=== PATIENT | female | born 1950 | race Caucasian/White ===

== ENCOUNTER 2017-12-26 18:47 | Emergency (ER) | payer OTHER ==
--- NOTE | 2017-12-26 19:19 | PDOC ---
Rapid Medical Evaluation Time Seen by Provider: 12/26/17 19:15 Medical Evaluation: Allergies Allergy/AdvReac Type Severity Reaction Status Date / Time aspirin Allergy Severe Hives Verified 10/13/16 16:37 12/26/17 19:15 The patient presents with a chief complaint of: [Intermittent dizziness, upper back pain. Since yesterday. H/O HTN. No headache, No CP, SOB, No N/V/D. NO complaint upon arrival. ] I have performed a brief in-person evaluation of this patient. Pertinent physical exam findings: vss, [Neuro intact, HRR, Lungs clear. ] I have ordered the following: [None] The patient will proceed to the ED for further evaluation. Discharge Disposition - Diagnosis Dizziness - Referrals - Patient Instructions - Post Discharge Activity
[2017-12-26 19:34] VITALS: BP 140/74; PULSE 65; TEMP 98.2; BMI 25.0
--- NOTE | 2017-12-26 21:03 | PDOC ---
History of Present Illness - General Chief Complaint: Lightheaded Stated Complaint: FATIGUE Time Seen by Provider: 12/26/17 19:15 History Source: Patient Exam Limitations: No Limitations - History of Present Illness Initial Comments: 12/26/17 20:58 67-year-old female described dizziness. Pt denies cp or headache or sob. Pt states she is compliant with her medication. Denies fever or chills, denies n or v. Pt denies recent travel. Past History - Travel Traveled outside of the country in the last 30 days: No Close contact w/someone who was outside of country & ill: No - Past Medical History Allergies/Adverse Reactions: Allergies Allergy/AdvReac Type Severity Reaction Status Date / Time aspirin Allergy Severe Hives Verified 12/26/17 19:19 Home Medications: Ambulatory Orders Metoprolol Succinate [Toprol XL -] 12.5 mg PO DAILY 02/10/16 Omeprazole 20 mg PO DAILY 02/10/16 Meclizine HCl 25 mg PO TID #30 tablet 12/26/17 Cardiac Disorders: Yes (PA 1977, prolaps) COPD: No GI Disorders: Yes (GERD) HTN: Yes Hypercholesterolemia: Yes - Surgical History Abdominal Surgery: Yes Appendectomy: Yes Cholecystectomy: Yes - Immunization History Immunization Up to Date: Yes - Suicide/Smoking/Psychosocial Hx Smoking Status: No Smoking History: Never smoked Have you smoked in the past 12 months: No Number of Cigarettes Smoked Daily: 0 Information on smoking cessation initiated: No Hx Alcohol Use: No Drug/Substance Use Hx: No Substance Use Type: None Review of Systems - Review of Systems Able to Perform ROS?: Yes Is the patient limited Frisian proficient: No Constitutional: Yes: Symptoms Reported, See HPI. No: Diaphoresis, Fever, Loss of Appetite, Malaise, Night Sweats, Weight Stable, Unintentional Wgt. Loss, Unexplained wgt Loss, Other HEENTM: Yes: Symptoms Reported, See HPI. No: Eye Pain, Blurred Vision, Tearing , Recent change in vision, Double Vision, Cataracts, Ear Pain, Ocular Prothesis , Ear Discharge, Nose Pain, Nose Congestion, Tinnitus Respiratory: Yes: Symptoms reported, See HPI. No: Cough, Orthopnea, Shortness of Breath, SOB with Exertion, SOB at Rest, Stridor, Wheezing, Productive cough Cardiac (ROS): Yes: Symptoms Reported, See HPI, Lightheadedness. No: Chest Pain , Edema, Irregular Heart Rate, Chest Tightness, Other ABD/GI: Yes: Symptoms Reported, See HPI. No: Abdominal Distended, Abd. Pain w/ defecation, Blood Streaked Bowels, Constipated, Diarrhea : Yes: Symptoms Reported, See HPI. No: Burning, Dysuria, Discharge, Frequency , Flank Pain, Hematuria, Pain Musculoskeletal: Yes: Symptoms Reported, See HPI. No: Back Pain, Gout, Joint Pain, Joint Swelling, Muscle Pain, Neck Pain Integumentary: Yes: Symptoms Reported, See HPI. No: Bruising, Change in Color, Change in Hair/Nails, Dryness, Erythema, Flushing, Lesions Neurological: Yes: Symptoms reported, See HPI, Dizziness. No: Headache, Numbness, Paresthesia, Pre-Existing Deficit, Seizure, Tingling, Weakness Psychiatric: No: Anxiety, Depression, Frequent Crying, Stressors, Sleep Pattern Change Endocrine: Yes: Symptoms Reported, See HPI. No: Excessive Sweating, Flushing, Intolerance to Cold, Intolerance to Heat, Increased Hunger, Unexplained Weight Gain Hematologic/Lymphatic: Yes: Symptoms Reported, See HPI. No: Anemia, Blood Clots , Easy Bleeding, Easy Bruising, Bleeding Diathesis, Lymph Node Abnormalities *Physical Exam - Vital Signs Last Vital Signs Temp Pulse Resp BP Pulse Ox 98.2 F 65 18 140/74 99 12/26/17 19:19 12/26/17 19:19 12/26/17 19:19 12/26/17 19:19 12/26/17 19:19 - Physical Exam Comments: 12/26/17 21:03 *Physical Exam General Appearance: Yes: Appropriately Dressed. No: Apparent Distress, Intoxicated HEENT: positive: EOMI, NIKHIL, Normal ENT Inspection, Normal Voice, TMs Normal, Pharynx Normal. negative: Pale Conjunctivae, Photophobia, Scleral Icterus (R), Scleral Icterus (L) Neck: positive: Trachea midline, Normal Thyroid, Supple. negative: Tender, Rigid, Carotid bruit, Stridor, Lymphadenopathy (R), Lymphadenopathy (L), Thyromegaly Respiratory/Chest: positive: Lungs Clear, Normal Breath Sounds. negative: Chest Tender, Respiratory Distress, Accessory Muscle Use, Labored Respiration, RES, Crackles, Rales, Rhonchi, Stridor, Wheezing, Dullness Cardiovascular: positive: Regular Rhythm, Regular Rate, S1, S2. negative: Edema , JVD, Murmur, Bradycardia, Tachycardia Vascular Pulses: Dorsalis-Pedis (R): 2+, Doralis-Pedis (L): 2+ Gastrointestinal/Abdominal: positive: Normal Bowel Sounds, Flat, Soft. negative : Tender, Organomegaly, Pulsatile Mass, Increased Bowel Sounds, Decreased BS, Distended, Guarding, Rebound, Hernia, Hepatomegaly, Spleenomegaly Lymphatic: negative: Adenopathy, Tenderness Musculoskeletal: positive: Normal Inspection. negative: CVA Tenderness, Decreased Range of Motion Extremity: positive: Normal Capillary Refill, Normal Inspection, Normal Range of Motion, Pelvis Stable. negative: Tender, Pedal Edema, Swelling, Erythema Integumentary: positive: Normal Color, Dry, Warm. 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 negative: EOM Palsy, Facial Droop, Sensory Deficit Heart Score/ECG Review - History History: Slightly suspicious - Electrocardiogram EKG: Normal - Age Age: >/= 65 - Risk Factors Risk Factors Heart Score: Yes Hx Hypertension Based on the list above the patient has:: 1-2 risk factors - Troponin Troponin: >/=3x normal limit - Score Heart Score - Total: 5 - ECG Intrepretation Rhythm: Regular Rhythm - [place]: Normal - P and [place] Prominent R with upright T in V1 (true posterior PA): No Delta Wave(s) Present: No ED Treatment Course - LABORATORY CBC & Chemistry Diagram: 12/26/17 21:30 12/26/17 21:30 Medical Decision Making - Medical Decision Making 12/27/17 19:09 Dr. Triana: The scribe's documentation has been prepared under my direction and personally reviewed by me in its entirery. I confirm that the note above accurately reflects all work, treatment, procedures, and medical decision making performed by me. *DC/Admit/Observation/Transfer Diagnosis at time of Disposition: Dizziness - Discharge Dispostion Disposition: HOME Condition at time of disposition: Stable Admit: No - Prescriptions Prescriptions: Meclizine HCl 25 mg PO TID #30 tablet - Referrals Referrals: Jason Perez MD [Primary Care Provider] - - Patient Instructions Printed Discharge Instructions: DI for Dizziness-Nonvertigo Additional Instructions: Please follow up with your primary care doctor for re-evaluation. TAke medication as directed. - Post Discharge Activity
[2017-12-26 21:55] LABS: BASO % 0.7 % (0-2.0); EOS % 1.6 % (0-4.5); HEMATOCRIT 45.2 % (32.4-45.2); LYMPH % 23.2 % (8-40); MCH 27.6 pg (25.7-33.7); MCHC 33.1 g/dl (32.0-36.0); MEAN CELL VOLUME 83.5 fl (80-96); MEAN PLT VOLUME 10.4 fl (7.5-11.1); MONO % 6.5 % (3.8-10.2); PLATELET COUNT 227 K/MM3 (134-434); RBC 5.42 M/mm3 (3.60-5.2); RDW 14.4 % (11.6-15.6)
[2017-12-26 22:09] LABS: ALBUMIN 4.3 g/dl (3.4-5.0); ANION GAP 8 (8-16); BILIRUBIN,TOTAL 0.4 mg/dL (0.2-1.0); BLOOD UREA NITROGEN 16 mg/dL (7-18); CHLORIDE 104 mmol/L (98-107); CO2 28 mmol/L (21-32); CREATININE 0.9 mg/dL (0.55-1.02); GLUCOSE,RANDOM 87 mg/dL (74-106); MAGNESIUM 2.3 mg/dL (1.8-2.4); POTASSIUM 4.2 mmol/L (3.5-5.1); SGOT/AST 23 U/L (15-37); SGPT/ALT 33 U/L (12-78); SODIUM 140 mmol/L (136-145); TOT PROT 8.2 g/dl (6.4-8.2)
[2017-12-26 22:12] LABS: ALK PHOS 95 U/L (45-117)
[2017-12-26 22:25] LABS: INR 0.98 (0.82-1.09); PROTHROMBIN TIME (PATIENT) 11.1 SEC (9.98-11.88)
[2017-12-26] MEDS ORDERED: MECLIZINE HCL 25 MG TABLET (FP) PO STA (23:25)
[2017-12-26] MEDS ORDERED: MECLIZINE HCL 25 MG TABLET (FP) ONE (23:28)
--- NOTE | 2017-12-27 10:42 | EKG ---
Test Reason : Blood Pressure : / mmHG Vent. Rate : 064 BPM Atrial Rate : 064 BPM P-R Int : 146 ms QRS Dur : 074 ms QT Int : 448 ms P-R-T Axes : 019 004 049 degrees QTc Int : 462 ms POOR DATA QUALITY, INTERPRETATION MAY BE ADVERSELY AFFECTED NORMAL SINUS RHYTHM NORMAL ECG WHEN COMPARED WITH ECG OF 13-OCT-2016 18:14, NONSPECIFIC T WAVE ABNORMALITY HAS REPLACED INVERTED T WAVES IN ANTERIOR LEADS Confirmed by AIRAM HENRY, ISABEL ([id number]) on 12/27/2017 10:42:34 AM Referred By: Confirmed By:ISABEL ALEGRIA MD
== END 2017-12-26 23:34 | disposition home or self-care (01) ==
LOC: JER 18:47
DX: R42 Dizziness and giddiness (principal); I10 Essential (primary) hypertension; E78.00 Pure hypercholesterolemia, unspecified
CPT/HCPCS: 36415; 70450-TC; 71045-TC-FY; 80053; 82550; 83735; 84484; 85025; 85610; 93005; 93010; 99281-25

== ENCOUNTER 2018-02-16 05:11 | Day surgery (SDC) | payer OTHER ==
[2018-01-29 12:02] VITALS: BMI 24.4
--- NOTE | 2018-02-16 08:33 | HP ---
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 The pain has worsened over the past 5 years and now she is unable to fit into her shoes and the pain worsened. She denies cp, sob, abd pain, n/v, lower ext swelling, changes to daily activities, urinary retention. History Source: Patient Limitations to Obtaining History: No Limitations - Past Medical History Cardiovascular: Yes: HTN, Hyperlipdemia Gastrointestinal: Yes: GERD ...: No Musculoskeletal: Yes: Osteoarthritis - Past Surgical History Additional Past Surgical History: R kidney stone removal 1986 L shoulder surgery Spondylosis back surgery 1991 - Smoking History Smoking history: Never smoked Have you smoked in the past 12 months: No Aproximately how many cigarettes per day: 0 - Alcohol/Substance Use Hx Alcohol Use: No History of Substance Use: reports: None - Social History Usual Living Arrangement: Yes: Alone ADL: Independent Occupation: retired History of Recent Travel: No Home Medications - Allergies Allergies/Adverse Reactions: Allergies Allergy/AdvReac Type Severity Reaction Status Date / Time aspirin Allergy Severe Hives Verified 02/16/18 08:15 - Home Medications Home Medications: Ambulatory Orders Metoprolol Succinate [Toprol XL -] 12.5 mg PO DAILY 02/10/16 Omeprazole 20 mg PO DAILY 02/10/16 Review of Systems - Review of Systems Constitutional: reports: No Symptoms Eyes: reports: No Symptoms HENT: reports: No Symptoms Neck: reports: No Symptoms Cardiovascular: reports: No Symptoms Respiratory: reports: No Symptoms Gastrointestinal: reports: No Symptoms Genitourinary: reports: No Symptoms Musculoskeletal: reports: Other (l foot pain) Integumentary: reports: No Symptoms Neurological: reports: No Symptoms Endocrine: reports: No Symptoms Hematology/Lymphatic: reports: No Symptoms Psychiatric: reports: No Symptoms Physical Examination Vital Signs: Vital Signs Temperature 97.9 F 02/16/18 08:10 Pulse Rate 73 02/16/18 08:10 Respiratory Rate 20 02/16/18 08:10 Blood Pressure 145/63 02/16/18 08:10 O2 Sat by Pulse Oximetry (%) 99 02/16/18 08:10 Constitutional: Yes: No Distress Eyes: Yes: Conjunctiva Clear HENT: Yes: Atraumatic Neck: Yes: Supple Cardiovascular: Yes: Regular Rate and Rhythm, S1, S2 Respiratory: Yes: Regular, CTA Bilaterally Gastrointestinal: Yes: Normal Bowel Sounds, Soft Renal/: Yes: WNL Musculoskeletal: Yes: WNL Extremities: Yes: Other (L foot bunion tenderness) Edema: No Neurological: Yes: Alert, Oriented, Cran Nerves II-XII Intact ...Motor Strength: WNL Psychiatric: Yes: Alert, Oriented Problem List - Problems (1) Hallux rigidus, left foot Code(s): M20.22 - HALLUX RIGIDUS, LEFT FOOT (2) Hyperlipidemia Code(s): E78.5 - HYPERLIPIDEMIA, UNSPECIFIED (3) Osteoporosis Code(s): M81.0 - AGE-RELATED OSTEOPOROSIS W/O CURRENT PATHOLOGICAL FRACTURE (4) Hypertension Code(s): I10 - ESSENTIAL (PRIMARY) HYPERTENSION Assessment/Plan Assessment: 67 year old female here for left foot bunion repair Plan: 1. Left foot hallux repair - Surgery per Podiatry today 2. HTN - Toprol 12.5mg daily 3. GERD - Cont daily PPI Visit type - Emergency Visit Emergency Visit: Yes Care time: The patient presented to the Emergency Department on the above date and was hospitalized for further evaluation of their emergent condition. - New Patient This patient is new to me today: Yes Date on this admission: 02/16/18 - Critical Care Critical Care patient: No Hospitalist Screening - Colonoscopy Questionnaire Colonoscopy Questionnaire: Colonoscopy Questionnaire - Patient: 50 - 75 years old and never had a screening colonoscopy: Unknown History of colon or rectal polyps, or CA: Unknown History of IBD, Crohn's disease or UC: Unknown History of abdominal radiation therapy as a child: Unknown - Relative: 1 with colon or rectal CA, or polyps at age 60 or younger: Unknown Colon or rectal CA diagnosed at age 45 or younger: Unknown Multiple relatives with colon or rectal CA: Unknown - Outcome: Screening Result: Negative Screen
[2018-02-16] MEDS ORDERED: MIDAZOLAM HCL 2 MG/2 ML SINGLE DOSE VIAL ONE (08:37)
[2018-02-16] MEDS ORDERED: PROPOFOL 20 ML ONE (08:37)
[2018-02-16] MEDS ORDERED: ONDANSETRON 4 MG/2 ML VIAL IVPUSH PRN (08:37)
[2018-02-16] MEDS ORDERED: oxyCODONE HCL 5 MG TABLET PO PRN (08:37)
[2018-02-16] MEDS ORDERED: LACTATED RINGERS SOLUTION 1,000 ML IV SCH (08:45)
[2018-02-16] MEDS ORDERED: LIDOCAINE 1%/EPI 1:100000 (20 ML MULTI DOSE VIAL) ONE (09:08)
[2018-02-16] MEDS ORDERED: BUPIVACAINE HCL/PF 0.5% (5MG/ML) 10 ML VIAL ONE (09:08)
--- NOTE | 2018-02-16 09:21 | HP ---
Admitting History and Physical - Primary Care Physician PCP: Mik Romero ([facility]) - Admission Chief Complaint: Painful bunion of the left foot - Past Medical History Cardiovascular: Yes: HTN, Hyperlipdemia Gastrointestinal: Yes: GERD ...: No Musculoskeletal: Yes: Osteoarthritis - Past Surgical History Additional Past Surgical History: R kidney stone removal 1986 L shoulder surgery Spondylosis back surgery 1991 - Smoking History Smoking history: Never smoked Have you smoked in the past 12 months: No Aproximately how many cigarettes per day: 0 - Alcohol/Substance Use Hx Alcohol Use: No History of Substance Use: reports: None - Social History ADL: Independent Occupation: retired History of Recent Travel: No Home Medications - Allergies Allergies/Adverse Reactions: Allergies Allergy/AdvReac Type Severity Reaction Status Date / Time aspirin Allergy Severe Hives Verified 02/16/18 08:15 - Home Medications Home Medications: Ambulatory Orders Metoprolol Succinate [Toprol XL -] 12.5 mg PO DAILY 02/10/16 Omeprazole 20 mg PO DAILY 02/10/16 Physical Examination Vital Signs: Vital Signs Temperature 97.9 F 02/16/18 08:10 Pulse Rate 73 02/16/18 08:10 Respiratory Rate 20 02/16/18 08:10 Blood Pressure 145/63 02/16/18 08:10 O2 Sat by Pulse Oximetry (%) 99 02/16/18 08:10 Musculoskeletal: Yes: Other (Left foot mild medial eminence with 10 degrees hallux abduction.) Assessment/Plan Assessment Left mild bunion with hallux valgus Osteotomy need considered necessary in this correction Plan Right Simple bunionectomy with soft tissue correction.
[2018-02-16] MEDS ORDERED: ceFAZolin SODIUM 1 GM VIAL IVPB ONE (09:40)
[2018-02-16] MEDS ORDERED: BUPIVACAINE HCL/PF 0.5% (5MG/ML) 10 ML VIAL IJ ONE (09:52)
[2018-02-16] MEDS ORDERED: LIDOCAINE 1%/EPI 1:100000 (20 ML MULTI DOSE VIAL) IJ ONE (09:52)
[2018-02-16] MEDS ORDERED: metoPROLOL SUCCINATE 25 MG TAB.SR.24H (FP) PO SCH (10:00)
--- NOTE | 2018-02-16 11:27 | OP ---
DATE OF OPERATION: 02/16/2018 PREOPERATIVE DIAGNOSIS: Left bunion with hallux valgus. POSTOPERATIVE DIAGNOSIS: Left bunion with hallux valgus. PROCEDURE: Left simple modified Hahn bunionectomy. DESCRIPTION OF PROCEDURE: Under fractional anesthesia and a surgical scrub with Betadine scrub and solution x2, the patient was draped using sterile technique. After 3 minutes of left limb elevation, a left ankle tourniquet was inflated to 250 mmHg pressure for 29 minutes. Inspection of the left foot showed a mild bunion with [id number] medial eminence and a 10-degree hallux abductus angle. Using a No. 15 surgical blade, a linear longitudinal incision was made on the dorsomedial aspect of the left foot over the 1st metatarsophalangeal joint. The incision was deepened through fascia and retracted exposing the joint capsule and the extensive haddad apparatus. These were longitudinally incised. Medial and lateral sesamoid ligaments were cut, and the head of the 1st metatarsal was delivered into the wound. The joint cartilage was inspected and found to be intact with no fissuring. A large medial eminence was noted and was resected using a bone saw. The edges were rasped smooth to remove any sharp edges. The wound was irrigated with sterile saline and then joint capsule and periosteum were reapproximated and closed with 3-0 Vicryl suture. The extensive haddad apparatus was reapproximated into a normal anatomic position and sutured in similar fashion. Joint range of motion was tested and found to be smooth and 90 degrees in a direction of dorsiflexion and normal in direction of plantar flexion, so subcutaneous tissues were reapproximated and sutured with 3-0 Vicryl running suture and then skin was reapproximated and closed with 3-0 nylon interlocking, running suture. The ankle joint was deflated after 29 minutes of inflation. Vascular profusion immediately returned to all 5 digits, so a dry sterile dressing was applied to the left foot. The patient tolerated the surgical procedure well and left the operating room stable, alert, awake, and in no pain. SCOTTY HARKINS/[id number]
[2018-02-16 15:38] VITALS: BP 130/70
[2018-02-16 15:42] VITALS: PULSE 68; TEMP 97.8
--- NOTE | 2018-02-21 11:33 | PATH ---
Surgical Pathology Report Patient Name: ARLETH CANTU [facility]. Rec. #: [id number] /Age/Gender: 1950 (Age: 67) / F Account: [id number] Location: [facility] Taken: 02/16/2018 Received: 02/16/2018 Reported: 02/21/2018 Physicians: Mik Romero M.D. Specimen(s) Received BONE FROM 1ST METATARSAL LEFT FOOT Clinical History Bunion left foot Final Diagnosis BONE, LEFT FOOT: CARTILAGE CAPPED BONE WITH FATTY MARROW SHOWING DEGENERATIVE CHANGE. Electronically Signed Giselle Luna M.D. Gross Description Received in formalin labeled "bone from first metatarsal left foot," is a 1.8 x 1.5 x 0.4 cm puckett, irregular portion of bone. A medicare sales representative section is submitted in one cassette, following decalcification. /02/16/2018 saudi/02/16/2018
== END 2018-02-16 13:30 | disposition home or self-care (01) ==
LOC: JASU-SURG 05:11
PROVIDERS: ATTEND Podiatrist Foot Surgery
PROC: 0QBR0ZZ Excision of Left Toe Phalanx, Open Approach (ICD-10-PCS; principal; 2018-02-16 09:30)
DX: M21.612 Bunion of left foot (principal); M20.12 Hallux valgus (acquired), left foot
CPT/HCPCS: 88304-TC; 88311-TC; 94760

== ENCOUNTER 2019-06-19 13:12 | Emergency (ER) | payer OTHER ==
[2019-06-19 13:17] VITALS: BP 153/75; PULSE 82; TEMP 98.2; BMI 26.2
--- NOTE | 2019-06-19 13:18 | PDOC ---
Rapid Medical Evaluation Time Seen by Provider: 06/19/19 13:13 Medical Evaluation: Allergies Allergy/AdvReac Type Severity Reaction Status Date / Time aspirin Allergy Severe Hives Verified 02/16/18 08:15 06/19/19 13:13 I have performed a brief in-person evaluation of this patient. The patient presents with a chief complaint of:upper abd pain w/ excessive belching, bloating and nausea x 4 days, no change in BM, f/c. H/o gastritis, takes omeprazole daily w/ no relief. Last EGD 3 years ago, unsure of results, does not currently have a GI. S/p appy, keshia and has h/o HTN, HLD, ? MVP PMD: Chris Pertinent physical exam findings:Stable w/ no sig ttp to abd I have ordered the following:ekg/labs The patient will proceed to the ED for further evaluation. 06/19/19 13:17 Discharge Disposition - Diagnosis Epigastric abdominal pain - Referrals - Patient Instructions - Post Discharge Activity
--- NOTE | 2019-06-19 13:54 | PDOC ---
History of Present Illness - General Chief Complaint: Pain Stated Complaint: ABD PAIN Time Seen by Provider: 06/19/19 13:13 Past History - Past Medical History Allergies/Adverse Reactions: Allergies Allergy/AdvReac Type Severity Reaction Status Date / Time aspirin Allergy Severe Hives Verified 02/16/18 08:15 Home Medications: Ambulatory Orders Metoprolol Succinate [Toprol XL -] 12.5 mg PO DAILY 02/10/16 Omeprazole 20 mg PO DAILY 02/10/16 Mag Hydrox/Al Hydrox/Simeth [Mylanta Suspension -] 30 ml PO Q6H #1 bottle Ranitidine [Zantac -] 150 mg PO DAILY #30 tablet 06/19/19 Anemia: No Asthma: No Cancer: No Cardiac Disorders: Yes ([place] 1977, prolaps) CVA: No COPD: No CHF: No Dementia: No Diabetes: No GI Disorders: Yes (GERD) Disorders: No HTN: Yes Hypercholesterolemia: Yes Liver Disease: No Seizures: No Thyroid Disease: No - Surgical History Abdominal Surgery: Yes Appendectomy: Yes Cardiac Surgery: No Cholecystectomy: Yes Lung Surgery: No Neurologic Surgery: No Orthopedic Surgery: Yes (LEFT SHOULDER SX) - Immunization History Immunization Up to Date: Yes - Suicide/Smoking/Psychosocial Hx Smoking Status: No Smoking History: Never smoked Have you smoked in the past 12 months: No Number of Cigarettes Smoked Daily: 0 Hx Alcohol Use: No Drug/Substance Use Hx: No Substance Use Type: None Hx Substance Use Treatment: No *Physical Exam - Vital Signs Last Vital Signs Temp Pulse Resp BP Pulse Ox 98.2 F 82 18 153/75 99 06/19/19 13:15 06/19/19 13:15 06/19/19 13:15 06/19/19 13:15 06/19/19 13:15 ED Treatment Course - LABORATORY CBC & Chemistry Diagram: 06/19/19 13:47 06/19/19 13:47 Medical Decision Making - Medical Decision Making 68yo F with PMH of GERD, gastritis, HTN, HLD, cholecystectomy presenting with abdominal pain. The pain is located in the RUQ and radiates to the epigastrium, rated 2/10 and described as "colicky." She also endorses belching and feeling "gassy" and "bloated." Last bowel movement was this morning and was loose which she attributes to taking miralax recently. Reports mild nausea, but no vomiting. Has not had greasy/fatty foods recently. Denies heavy NSAID use or history of H. pylori. Abdominal surgeries include appendectomy, cholecystectomy , and tubal ligation. Patient last saw a GI doctor three years ago but not since as the doctor does not accept her insurance. Last endoscopy was three years ago and patient believes the results were "fine." Does not remember when her last colonoscopy was; she had one polyp and is due for another colonoscopy next year. No fevers, chills, chest pain, or shortness of breath. ROS: Constitutional: no fever, no chills HEENT: no throat pain, no dysphagia Cardiovascular: no chest pain, no palpitations Respiratory: no cough, no shortness of breath Gastrointestinal: +abdominal pain, +nausea Genitourinary: no dysuria, no hematuria Musculoskeletal: no myalgia, no arthralgia Skin: no rash, no itching Neurologic: no headache, no weakness PE: General: Awake, alert, and fully oriented, in no acute distress Head: No signs of trauma Eyes: EOMI, sclera anicteric ENT: Moist mucus membranes Neck: Normal ROM, supple Lungs: Lungs clear, Normal breath sounds Cardio: Regular rhythm, S1 and S2 present Abdomen: Soft, nontender to palpation. No guarding, no rebound, no masses Extremities: Normal range of motion, Distal pulses present SKIN: Warm, Dry, normal turgor Neurologic: Cranial nerves II through XII grossly intact. Normal speech ED Courses/MDM: DDX including but not limited to GERD, gastritis, pancreatitis, cholecystitis, ACS, SBO Labs Pepcid, Maalox, Zofran, Ofirmev EKG: rate 72, QTc 464, NSR 06/19/19 13:54 CBC WBC 6.4 K/mm3 (4.0-10.0) 06/19/19 13:47 RBC 5.52 M/mm3 (3.60-5.2) H 06/19/19 13:47 Hgb 15.0 GM/dL (10.7-15.3) 06/19/19 13:47 Hct 45.8 % (32.4-45.2) H 06/19/19 13:47 MCV 83.0 fl (80-96) 06/19/19 13:47 MCH 27.2 pg (25.7-33.7) 06/19/19 13:47 MCHC 32.8 g/dl (32.0-36.0) 06/19/19 13:47 RDW 14.3 % (11.6-15.6) 06/19/19 13:47 Plt Count 212 K/MM3 (134-434) 06/19/19 13:47 MPV 9.8 fl (7.5-11.1) 06/19/19 13:47 Absolute Neuts (auto) 3.5 K/mm3 (1.5-8.0) 06/19/19 13:47 Neutrophils % 55.4 % (42.8-82.8) 06/19/19 13:47 Lymphocytes % 32.8 % (8-40) 06/19/19 13:47 Monocytes % 8.2 % (3.8-10.2) 06/19/19 13:47 Eosinophils % 2.3 % (0-4.5) 06/19/19 13:47 Basophils % 1.3 % (0-2.0) 06/19/19 13:47 Nucleated RBC % 0 % (0-0) 06/19/19 13:47 No leukocytosis CMP Sodium 139 mmol/L (136-145) 06/19/19 13:47 Potassium 4.6 mmol/L (3.5-5.1) 06/19/19 13:47 Chloride 107 mmol/L (98-107) 06/19/19 13:47 Carbon Dioxide 23 mmol/L (21-32) 06/19/19 13:47 Anion Gap 10 MMOL/L (8-16) 06/19/19 13:47 BUN 11.0 mg/dL (7-18) 06/19/19 13:47 Creatinine 0.7 mg/dL (0.55-1.3) 06/19/19 13:47 Est GFR (CKD-EPI)AfAm 103.18 06/19/19 13:47 Est GFR (CKD-EPI)NonAf 89.03 06/19/19 13:47 Random Glucose 85 mg/dL (74-106) 06/19/19 13:47 Calcium 10.0 mg/dL (8.5-10.1) 06/19/19 13:47 Total Bilirubin 0.5 mg/dL (0.2-1) 06/19/19 13:47 AST 47 U/L (15-37) H 06/19/19 13:47 ALT 47 U/L (13-61) 06/19/19 13:47 Alkaline Phosphatase 96 U/L (45-117) 06/19/19 13:47 Creatine Kinase 133 U/L (26-192) 06/19/19 13:47 Troponin I < 0.02 ng/ml (0.00-0.05) 06/19/19 16:18 Total Protein 8.1 g/dl (6.4-8.2) 06/19/19 13:47 Albumin 4.2 g/dl (3.4-5.0) 06/19/19 13:47 Lipase 132 U/L (73-393) 06/19/19 13:47 Electrolytes unremarkable Mildly elevated AST Lipase normal Cr normal 1st and 2nd Tpn undetectable Patient reporting alleviation of her symptoms High suspicion for GERD/gastritis Referral for outpatient GI Ranitidine, maalox sent to pharmacy Discharged with return precautions *DC/Admit/Observation/Transfer Diagnosis at time of Disposition: Epigastric abdominal pain - Discharge Dispostion Disposition: HOME Condition at time of disposition: Stable - Prescriptions Prescriptions: Mag Hydrox/Al Hydrox/Simeth [Mylanta Suspension -] 30 ml PO Q6H #1 bottle Ranitidine [Zantac -] 150 mg PO DAILY #30 tablet - Referrals Referrals: Chuy Sutherland DO [Staff Physician] - Jason Perez MD [Primary Care Provider] - Weston Avalos MD [Staff Physician] - Pb Aguirre MD [Staff Physician] - - Patient Instructions Printed Discharge Instructions: DI for Abdominal Pain-Adult Additional Instructions: You came into the ED for abdominal pain. Lab work and EKG did not indicate acute pathology Prescription sent to your pharmacy. Take as instructed. We have referred you to a GI doctor who can further evaluate your symptoms. Call tomorrow morning and make an appointment . Your workup is not complete until you do so. Immediate medical attention is required if you develop: worsening pain, high fevers, persistent nausea, vomiting, or any new or concerning symptoms. If you think you are having an emergency, call for emergency medical services or present to the emergency department right away. ===== [place] andradeicio de urgencias por dolor abdominal. El trabajo de laboratorio y el electrocardiograma no indicaron patologa aguda Receta enviada a tejada farmacia. Tmelo segn las instrucciones. Lo hemos derivado a un mdico GI que puede evaluar ms lukas sntomas. Llame maana por la maana y erick lucina raza. Tejada trabajo no est completo hasta que lo erick. Se requiere atencin mdica inmediata si desarrolla: empeoramiento del dolor, fiebre marta, nuseas persistentes, vmitos o cualquier sntoma nuevo o preocupante. Si aviva que est teniendo lucina emergencia, llame a los servicios mdicos de emergencia o presntese de inmediato en el departamento de emergencias. Print Language: BULGARIAN - Post Discharge Activity
[2019-06-19 14:13] LABS: BASO % 1.3 % (0-2.0); EOS % 2.3 % (0-4.5); HEMATOCRIT 45.8 % (32.4-45.2); LYMPH % 32.8 % (8-40); MCH 27.2 pg (25.7-33.7); MCHC 32.8 g/dl (32.0-36.0); MEAN PLT VOLUME 9.8 fl (7.5-11.1); MONO % 8.2 % (3.8-10.2); NEUT % 55.4 % (42.8-82.8); PLATELET COUNT 212 K/MM3 (134-434); RBC 5.52 M/mm3 (3.60-5.2); RDW 14.3 % (11.6-15.6); WHITE BLOOD COUNT 6.4 K/mm3 (4.0-10.0)
[2019-06-19 14:28] LABS: URINE APPEARANCE Error; URINE BILIRUBIN NEGATIVE (NEGATIVE); URINE COLOR YELLOW; URINE GLUCOSE (UA) NEGATIVE (NEGATIVE); URINE KETONE NEGATIVE (NEGATIVE); URINE LEUK ESTERASE NEGATIVE (NEGATIVE); URINE NITRITE NEGATIVE (NEGATIVE); URINE PROTEIN NEGATIVE (NEGATIVE); URINE UROBILINOGEN 0.2 mg/dL (0.2-1.0)
[2019-06-19] MEDS ORDERED: ACETAMINOPHEN 1000 MG/100 ML VIAL (NON FORMULARY) IVPB ONE (14:35)
[2019-06-19] MEDS ORDERED: ONDANSETRON 4 MG/2 ML VIAL IVPUSH ONE (14:35)
[2019-06-19] MEDS ORDERED: MAG HYDROX/AL HYDROX/SIMETH -MYLANTA- ORAL SUSPENSION PO ONE (14:35)
[2019-06-19] MEDS ORDERED: FAMOTIDINE 20 MG/50 ML IVPB 20 MG/50 ML MG IVPB ONE ×2 (14:35→14:41)
[2019-06-19] MEDS ORDERED: ACETAMINOPHEN INJECTION 100 ML IVPB ONE (14:40)
[2019-06-19] MEDS ORDERED: MAG HYDROX/AL HYDROX/SIMETH 30 ML UNIT-DOSE CUP ONE (14:41)
[2019-06-19] MEDS ORDERED: ONDANSETRON 4 MG/2 ML VIAL ONE (14:41)
[2019-06-19 15:38] LABS: ALBUMIN 4.2 g/dl (3.4-5.0); ALK PHOS 96 U/L (45-117); ANION GAP 10 MMOL/L (8-16); BILIRUBIN,TOTAL 0.5 mg/dL (0.2-1); CHLORIDE 107 mmol/L (98-107); CO2 23 mmol/L (21-32); CREATININE 0.7 mg/dL (0.55-1.3); GLUCOSE,RANDOM 85 mg/dL (74-106); LIPASE 132 U/L (73-393); POTASSIUM 4.6 mmol/L (3.5-5.1); SGOT/AST 47 U/L (15-37); SGPT/ALT 47 U/L (13-61); SODIUM 139 mmol/L (136-145); TOT PROT 8.1 g/dl (6.4-8.2)
--- NOTE | 2019-06-19 17:44 | EKG ---
Test Reason : Blood Pressure : / mmHG Vent. Rate : 072 BPM Atrial Rate : 072 BPM P-R Int : 148 ms QRS Dur : 082 ms QT Int : 424 ms P-R-T Axes : 043 001 045 degrees QTc Int : 464 ms NORMAL SINUS RHYTHM MINIMAL VOLTAGE CRITERIA FOR LVH, MAY BE NORMAL VARIANT NONSPECIFIC T WAVE ABNORMALITY ABNORMAL ECG WHEN COMPARED WITH ECG OF 29-JAN-2018 11:00, NONSPECIFIC T WAVE ABNORMALITY HAS REPLACED INVERTED T WAVES IN ANTERIOR LEADS Confirmed by AIRAM HENRY, ISABEL ([id number]) on 06/19/2019 5:43:53 PM Referred By: Confirmed By:ISABEL ALEGRIA MD
--- NOTE | 2019-06-19 17:50 | PDOC ---
Documentation entered by Brenda Avalos SCRIBE, acting as scribe for Rekha Sood MD. Rekha Sood MD: This documentation has been prepared by the Robbie bone Xhesika, SCRIBE, under my direction and personally reviewed by me in its entirety. I confirm that the documentation accurately reflects all work, treatment, procedures, and medical decision making performed by me. Attending Attestation - Resident Resident Name: Collette Matthews - ED Attending Attestation I have performed the following: I have examined & evaluated the patient, The case was reviewed & discussed with the resident, I agree w/resident's findings & plan, Exceptions are as noted - HPI HPI: 06/19/19 15:24 The patient is a 68 year old female with a significant PMH of [place], GERD, hypertension, hypercholesterolemia, osteoporosis, cholecystectomy, and gastritis (on omeprazole daily) who presents to the emergency department with upper RUQ pain this morning (first episode on Monday). Patient describes her pain as 2/10, intermittent, gassy, radiating to her epigastric region and associated with nausea. Patient notes she hasnt followed with Dr. Munoz for the past 3 years, however, her symptoms are consistent with her GERD/Gastritis symptoms. Patient states she was constipated last week, took miralax the last 2 days and had a watery, brownish stool today. The patient denies chest pain, shortness of breath, headache, diaphoresis, focal weakness/numbness and dizziness. Denies fever, chills, cough, diarrhea. Denies dysuria, frequency, urgency and hematuria. Allergies: Aspirin Surgeries: Appendectomy, cholecystectomy Social History: No smoking, recreational drug use or ETOH consumption PCP: Dr. Jason Perez Hl7 Developer: Dr. Munoz - Physicial Exam PE: 06/19/19 15:25 GENERAL: Awake, alert, and fully oriented, in no acute distress. Very well appearing HEAD: No signs of trauma EYES: PERRLA, EOMI, sclera anicteric, conjunctiva clear ENT: Auricles normal inspection, hearing grossly normal, nares patent, oropharynx clear without exudates. Moist mucosa NECK: Normal ROM, supple, no lymphadenopathy, JVD, or masses LUNGS: Breath sounds equal, clear to auscultation bilaterally. No wheezes, and no crackles HEART: Regular rate and rhythm, normal S1 and S2, no murmurs, rubs or gallops ABDOMEN: Soft, mild epigastric ttp, normoactive bowel sounds. No guarding, no rebound. No masses EXTREMITIES: Normal range of motion, no edema. No clubbing or cyanosis. No cords , erythema, or tenderness BACK: No midline spinal tenderness in cervical/thoracic/lumbar region NEUROLOGICAL: Normal speech, cranial nerves intact, negative pronator drift, 5/ 5 strength in all 4 extremities, normal sensation to light touch in all 4 extremities, normal cerebellar exam, normal gait, normal reflexes and tone SKIN: Warm, Dry, normal turgor, no rashes or lesions noted. - Medical Decision Making 06/19/19 17:34 68yo F hx [place], GERD, hypertension, hypercholesterolemia, osteoporosis, cholecystectomy, and gastritis presents to the ED with RUQ radiating to epigastric pain Vitals unremarkable Exam with mild epigastric ttp initially, resolved post GI cocktail DDx includes GERD vs gastritis vs pancreatitis vs ACS Labs including trop x2 negative Pt is feeling significantly better, is hungry and requests DC home Likely gastritis She is clinically stable for DC home with GI f/u and strict return precautions I discussed the physical exam findings, ancillary test results and final diagnoses with the patient. I answered all of the patient's questions. The patient was satisfied with the care received and felt comfortable with the discharge plan and treatment plan. The patient will call their primary care physician within 24 hours to arrange follow-up and will return to the Emergency Department with any new, persistent or worsening symptoms. Heart Score/ECG Review - Risk Factors Based on the list above the patient has:: 1-2 risk factors #1 06/19/19 17:33 EKG read and int by me: NSR, rate 72, Normal axis. Wavy baseline but no BAUTISTA.
== END 2019-06-19 18:00 | disposition home or self-care (01) ==
LOC: JER 13:12
PROC: 3E033GC Introduction of Other Therapeutic Substance into Peripheral Vein, Percutaneous Approach (ICD-10-PCS; principal; 2019-06-19)
PROC: 3E033NZ Introduction of Analgesics, Hypnotics, Sedatives into Peripheral Vein, Percutaneous Approach (ICD-10-PCS; 2019-06-19)
DX: R10.13 Epigastric pain (principal)
CPT/HCPCS: 36415; 80053; 81003; 82550; 83690; 84484; 85025; 93005; 93010; 96365; 96375; 99283-25; J0131

== ENCOUNTER 2021-04-15 15:16 | Emergency (ER) | payer OTHER ==
[2021-04-15 15:30] VITALS: BMI 26.5
[2021-04-15] MEDS ORDERED: FAMOTIDINE 20 MG/50 ML IVPB 20 MG/50 ML MG IVPB ONE ×2 (16:55→17:30)
[2021-04-15] MEDS ORDERED: MAG HYDROX/AL HYDROX/SIMETH -MYLANTA- ORAL SUSPENSION PO ONE (16:55)
[2021-04-15] MEDS ORDERED: MAG HYDROX/AL HYDROX/SIMETH 30 ML UNIT-DOSE CUP ONE (17:30)
[2021-04-15 17:41] LABS: BASO % 0.6 % (0-2.0); EOS % 0.7 % (0-4.5); HEMATOCRIT 43.5 % (32.4-45.2); HEMOGLOBIN 14.2 GM/dL (10.7-15.3); LYMPH % 18.3 % (8-40); MCH 26.9 pg (25.7-33.7); MCHC 32.7 g/dl (32.0-36.0); MEAN CELL VOLUME 82.3 fl (80-96); MEAN PLT VOLUME 9.5 fl (7.5-11.1); MONO % 5.5 % (3.8-10.2); NEUT % 74.9 % (42.8-82.8); PLATELET COUNT 215 10^3/uL (134-434); RBC 5.28 M/mm3 (3.60-5.2); RDW 14.5 % (11.6-15.6); WHITE BLOOD COUNT 7.5 K/mm3 (4.0-10.0)
[2021-04-15 18:02] LABS: CHLORIDE 110 mmol/L (98-107); SODIUM 142 mmol/L (136-145)
[2021-04-15 18:03] LABS: BLOOD UREA NITROGEN 12.5 mg/dL (7-18); CALCIUM 9.6 mg/dL (8.5-10.1)
[2021-04-15 18:05] LABS: ALBUMIN 4.1 g/dl (3.4-5.0); ANION GAP 5 MMOL/L (8-16); CO2 27 mmol/L (21-32); GLUCOSE,RANDOM 120 mg/dL (74-106); LIPASE 120 U/L (73-393)
[2021-04-15 18:08] LABS: BILIRUBIN,TOTAL 0.4 mg/dL (0.2-1); SGOT/AST 22 U/L (15-37); SGPT/ALT 35 U/L (13-61); TOT PROT 7.6 g/dl (6.4-8.2)
[2021-04-15 18:09] LABS: ALK PHOS 91 U/L (45-117)
[2021-04-15 19:28] VITALS: BP 156/63; PULSE 57; TEMP 98.6
== END 2021-04-15 19:15 | disposition home or self-care (01) ==
LOC: JER 15:16
PROC: 3E033NZ Introduction of Analgesics, Hypnotics, Sedatives into Peripheral Vein, Percutaneous Approach (ICD-10-PCS; principal; 2021-04-15)
DX: R00.2 Palpitations (principal)
CPT/HCPCS: 36415; 71046-TC-FY; 80053; 83690; 84443; 84484; 85025; 93005; 93010; 99284-25

== ENCOUNTER 2021-06-24 04:46 | Day surgery (SDC) | payer OTHER ==
[2021-06-24 11:15] VITALS: BP 142/65; PULSE 65; TEMP 97.8
== END 2021-06-24 11:31 | disposition home or self-care (01) ==
LOC: JASU-ENDO 04:46
PROVIDERS: ATTEND Internal Medicine Gastroenterology
PROC: 0DB78ZX Excision of Stomach, Pylorus, Via Natural or Artificial Opening Endoscopic, Diagnostic (ICD-10-PCS; 2021-06-24)
PROC: 0DB28ZX Excision of Middle Esophagus, Via Natural or Artificial Opening Endoscopic, Diagnostic (ICD-10-PCS; 2021-06-24)
PROC: 0DB48ZX Excision of Esophagogastric Junction, Via Natural or Artificial Opening Endoscopic, Diagnostic (ICD-10-PCS; principal; 2021-06-24 11:00)
DX: D13.0 Benign neoplasm of esophagus (principal); K44.9 Diaphragmatic hernia without obstruction or gangrene; K29.50 Unspecified chronic gastritis without bleeding; K30 Functional dyspepsia; I10 Essential (primary) hypertension

== ENCOUNTER 2021-07-01 04:30 | Day surgery (SDC) | payer OTHER ==
[2021-06-30 15:20] VITALS: BMI 26.2
[2021-07-01 11:29] VITALS: BP 118/47; PULSE 51; TEMP 98
== END 2021-07-01 11:10 | disposition home or self-care (01) ==
LOC: JASU-ENDO 04:30
PROVIDERS: ATTEND Internal Medicine Gastroenterology
PROC: 0DB98ZX Excision of Duodenum, Via Natural or Artificial Opening Endoscopic, Diagnostic (ICD-10-PCS; 2021-07-01)
PROC: 0DBL8ZX Excision of Transverse Colon, Via Natural or Artificial Opening Endoscopic, Diagnostic (ICD-10-PCS; principal; 2021-07-01 09:00)
DX: Z12.11 Encounter for screening for malignant neoplasm of colon (principal); D12.3 Benign neoplasm of transverse colon; K57.30 Diverticulosis of large intestine without perforation or abscess without bleeding; K64.9 Unspecified hemorrhoids; K31.89 Other diseases of stomach and duodenum; K30 Functional dyspepsia; Z86.010 Personal history of colon polyps

== ENCOUNTER 2022-09-03 11:28 | Emergency (ER) | payer OTHER ==
[2022-09-03 11:40] VITALS: BP 125/75; PULSE 102; RESP 18; TEMP 98.8; BMI 28.1
[2022-09-03] MEDS ORDERED: DEXAMETHASONE SOD PHOSPHATE 10 MG/1 ML VIAL PO ONE (12:45)
[2022-09-03] MEDS ORDERED: DEXAMETHASONE SOD PHOSPHATE 10 MG/1 ML VIAL ONE ×2 (12:47→12:56)
== END 2022-09-03 13:30 | disposition home or self-care (01) ==
LOC: JER 11:28
DX: R05.1 Acute cough (principal); J02.9 Acute pharyngitis, unspecified; J09.X2 Influenza due to identified novel influenza A virus with other respiratory manifestations
CPT/HCPCS: 0241U-QW; 99283-25; J1100